=== PATIENT | female | born 1985 | race Caucasian/White ===

== ENCOUNTER 2017-11-19 14:36 | Inpatient (IN) | payer OTHER ==
[~2017-11-19] VITALS: Ht 170.2 cm; Wt 125.0 kg
--- NOTE | ~2017-11-19 | OR ---
[facility] [address] [place], [place] [address] Draft DATE OF OPERATION: 12/01/2017 SURGEON: Mary López MD PREOPERATIVE DIAGNOSES: 1. A 32-year-old, 6, para 2 at 39 weeks 2 days estimated gestational age. 2. Repeat section. 3. Asthma. 4. Depression/anxiety. 5. History of baby dying of sudden infant syndrome. 6. Group B strep positive. POSTOPERATIVE DIAGNOSES: 1. A 32-year-old, 6, para 2 at 39 weeks 2 days estimated gestational age. 2. Repeat section. 3. Asthma. 4. Depression/anxiety. 5. History of baby dying of sudden infant syndrome. 6. Group B strep positive. PROPERTY SITE MANAGER SURGEON: Luis Angel Blevins MD ANESTHESIA PROVIDER: Moise Lopez CRNA ANESTHESIA: Spinal anesthesia provided. ESTIMATED BLOOD LOSS: 600 mL. URINE OUTPUT: 100 mL with Perez draining to gravity. INTRAVENOUS FLUIDS IN: 2000 mL. PROCEDURE: Repeat low-transverse section with double-layer closure. PATIENT NAME: LUC GREENFIELD OPERATIVE REPORT DATE OF : 87 REPORT #: [id number] PHYSICIAN: MARY LÓPEZ MD PCP: MARY LÓPEZ MD REPORT IS CONFIDENTIAL AND NOT TO BE RELEASED WITHOUT AUTHORIZATION [address] [address] Draft PROCEDURE TECHNIQUE: The patient was taken back to the operating room with IV fluids hanging. She was placed on the operating table with in sitting upright position and her spinal anesthesia was then placed under sterile technique. She was then prepped and draped under normal sterile technique and a Perez catheter placed at that time. She was then checked for appropriate anesthesia and was found to be good and a Pfannenstiel skin incision was made with a scalpel through the subcutaneous tissue to the fascia, which was nicked in the midline. The incision was then extended laterally with Neff scissors and the fascia then grasped with Rajesh clamps on the anterior edge and tented upward and away from the rectus abdominis muscles. These were off both sharply and bluntly. The same was performed superiorly. There was significant scarring noted. The rectus abdominis muscles were then in the midline and the peritoneum identified. It was tented up with a mosquito clamp and entered sharply with Metzenbaum scissors. That incision was extended superiorly and inferiorly. The winch operator's hand was inserted to check for scarring and it was clear of omentum. An Chino retractor was then placed into the incision and tightened down against the anterior abdominal wall. The uterus was then easily visualized and the uterovesical fascia was grasped with a sharp pickup and entered with Metzenbaum scissors and a bladder flap was then created. It was pushed down away from the lower uterine segment, which was noted to be very thin. Lower uterine segment was then incised with scalpel and upon incising the lower uterine segment, the amniotic sac was ruptured simultaneously. The incision was extended digitally and the vertex baby girl was noted with loose nuchal cord x2, presenting in the LOP position. She was delivered easily and the cord was clamped and cut after it had been reduced. Cord blood was sent. Baby was passed off to waiting pediatric nurses. Baby's mouth and nose were suctioned. Good cry. She was noted to have Apgars of 8 at 1 minute and 9 at 5 minutes. Baby weighed 7 pounds 4 ounces. She was later taken over to mother and placed yraw-au-qedr while the procedure was continuing. Attention was then turned to the uterus, where the placenta was delivered manually and dry laparotomy sponges were used to clear out the uterine cavity, endometrium, and endometrial cavity. T- clamps were placed on the lateral apices and the lower uterine segment and 0 Monocryl was used to reapproximate the first layer in continuous running lock stitch. Second layer was used to imbricate the first in a baseball-type fashion with good hemostasis on both layers. A few extra gnhmas-iv-pjhezs were thrown for further hemostasis. The pelvis was then irrigated copiously with normal saline. Again, good hemostasis was noted. The Chino retractor was then removed and the peritoneum grasped with Arianna clamps x3. The incision was revisualized using Rich retractors x2 and then ACell graft was then placed over the incision to promote healing and prevent infection. The peritoneum was then reapproximated with 3-0 Vicryl in a continuous running fashion. Good hemostasis was noted and attention was then turned to the rectus abdominis muscles, which were reapproximated with 0 Vicryl interrupted x3 and then sprinkled with ACell powder again to promote healing and prevent infection. Attention PATIENT NAME: LUC GREENFIELD OPERATIVE REPORT DATE OF : [birth year] REPORT #: [id number] PHYSICIAN: MARY LÓPEZ MD PCP: MARY LÓPEZ MD REPORT IS CONFIDENTIAL AND NOT TO BE RELEASED WITHOUT AUTHORIZATION [address] [address] Draft was then turned to the fascia, which was reapproximated with 0 Vicryl in a continuous running fashion from the patient's right apex to the midline and then from the left apex to the midline with 2 separate 0 Vicryl sutures. Again, good hemostasis was noted. The subcutaneous layer was then irrigated and the Bovie was used for further hemostasis. A 2-0 Vicryl was then used to reapproximate that layer and the skin was then closed. Additionally, ACell powder was sprinkled in that layer to promote healing and prevent infection and the skin was reapproximated using avery. A pressure dressing was placed over the incision. The uterus was then expressed of all clot and debris. All sponge, instrument, and needle counts were correct. The patient was taken to recovery room in stable condition. There were no complications. Mary López MD JKM/MODL /[id number] Copies: ~ PATIENT NAME: LUC GREENFIELD OPERATIVE REPORT DATE OF : 87 REPORT #: [id number] PHYSICIAN: MARY LÓPEZ MD PCP: RENE,MARY K MD REPORT IS CONFIDENTIAL AND NOT TO BE RELEASED WITHOUT AUTHORIZATION
[~2017-11-19 14:36] MED LIST: FLUOXETINE HCL20 MG PO; IBUPROFEN800 MG PO; IPRAT-ALBUT 0.5-3 ML INH; OXYCODONE-ACET1 EAC1 PO; PREDNISONE20 MG PO; VENTOLIN HFA18 GM INH
--- NOTE | 2017-12-01 08:33 | NUR ---
12/01/17 0833 Gertrude Caba 0825 TO ROOM. S/O AT BEDSIDE. FBC RN AT BEDSIDE. PT DENIES PAIN OR NAUSEA AT THIS TIME 0828 BABY TO BREAST.
--- NOTE | 2017-12-02 07:24 | PR ---
[facility] [address] [facility] [place], [place] [address] Signed PP Progress Notes Datetime Report Generated by CPN: 12/02/2017 07:24 SUBJECTIVE: [id number] Pain: Within normal limits Nausea/Vomiting: Denies Flatus: Yes Vital Signs: [id number] Vital Signs: Reviewed; Within Normal Limits EXAM: [id number] Cardiovascular: Normal Respiratory: Normal Abdomen/Uterus: Normal Lochia: Normal Vulva/Perineum: Normal Breasts: Normal CVA Tenderness: Normal Extremities: Normal Incision: Normal Progress: Normal IMPRESSION/PLAN/PROCEDURES: [id number] Impression: Normal progression Plan: Continue present management Procedures: None Progress Notes: patient doing well postoperatively. Routine care Signing Physician: Mary Parker MD CC: *Electronically Signed* 12/02/17 0724 MARY PARKER MD PATIENT NAME: LUC GREENFIELD PROGRESS NOTE DATE OF : 87 PHYSICIAN: MARY PARKER MD RPT #: [id number] REPORT IS CONFIDENTIAL AND NOT TO BE RELEASED WITHOUT AUTHORIZATION
--- NOTE | 2017-12-03 09:49 | PR ---
[facility] [address] [facility] [place], [place] [address] Signed PP Progress Notes Datetime Report Generated by CPN: 12/03/2017 09:49 SUBJECTIVE: [id number] Pain: Within normal limits Nausea/Vomiting: Denies Flatus: Yes Vital Signs: [id number] Vital Signs: Reviewed; Within Normal Limits EXAM: [id number] Cardiovascular: Normal Respiratory: Normal Abdomen/Uterus: Normal Lochia: Normal Vulva/Perineum: Normal Breasts: Normal CVA Tenderness: Normal Extremities: Normal Incision: Normal Progress: Normal IMPRESSION/PLAN/PROCEDURES: [id number] Impression: Normal progression Plan: Remove avery; Discharge Procedures: None Progress Notes: patient doing well. OK for d/c home today Signing Physician: Mary Parker MD CC: *Electronically Signed* 12/03/17 0949 MARY PARKER MD PATIENT NAME: LUC GREENFIELD PROGRESS NOTE DATE OF : 87 PHYSICIAN: MARY PARKER MD RPT #: [id number] REPORT IS CONFIDENTIAL AND NOT TO BE RELEASED WITHOUT AUTHORIZATION
== END 2017-12-03 10:40 | disposition home or self-care (01) | DRG 766 ==
LOC: FBC 12-01 05:08 → MS 12-01 08:53 → FBC 12-03 10:40
PROVIDERS: ADMIT Obstetrics & Gynecology
PROC: 10D00Z1 Extraction of Products of Conception, Low, Open Approach (ICD-10-PCS; principal; 2017-12-01 06:45)
DX: O34.211 Maternal care for low transverse scar from previous cesarean delivery (principal); Z3A.39 39 weeks gestation of pregnancy; Z37.0 Single live birth; O99.824 Streptococcus B carrier state complicating childbirth; O99.344 Other mental disorders complicating childbirth; F41.8 Other specified anxiety disorders; J45.909 Unspecified asthma, uncomplicated; O99.52 Diseases of the respiratory system complicating childbirth
CPT/HCPCS: 01961; 36415; 85027; C1763; J0690; J1885; J2274; J2405; J2590; J2765; J3010; J7040; J7120

== ENCOUNTER 2017-12-11 17:15 | Emergency (ER) | payer OTHER ==
[~2017-12-11] VITALS: Ht 170.2 cm; Wt 115.2 kg
[2017-12-11] MEDS ORDERED: FENUGREEK500 MG PO (17:53)
[2017-12-11] MEDS ORDERED: PERCOCET 5-3251 EACH PO (17:53)
[2017-12-11] MEDS ORDERED: IBUPROFEN200 MG PO (17:53)
== END 2017-12-11 19:04 | disposition home or self-care (01) ==
LOC: ED 17:15
PROC: 0HQFXZZ Repair Right Hand Skin, External Approach (ICD-10-PCS; principal; 2017-12-11)
DX: S61.212A Laceration without foreign body of right middle finger without damage to nail, initial encounter (principal); J45.909 Unspecified asthma, uncomplicated; Z87.891 Personal history of nicotine dependence; Z79.899 Other long term (current) drug therapy; W25.XXXA Contact with sharp glass, initial encounter
CPT/HCPCS: 12001; 99282

== ENCOUNTER 2018-02-05 18:35 | Inpatient (IN) | payer OTHER ==
[~2018-02-05] VITALS: Ht 170.2 cm; Wt 117.7 kg
--- OUTSIDE RECORDS SUMMARY | ~2018-02-05 | XMS | Clinical Summary ---
Demographics + + + | Address | [address] | | | [place] [address] | + + + | Home Phone | | + + + | Preferred Language | Unknown | + + + | Marital Status | Single | + + + | Buddhist Affiliation | Unknown | + + + | Race | Unknown | + + + | Ethnic Group | Unknown | + + + Author + + + | Author | [facility] | + + + | Organization | [facility] | + + + | Address | Unknown | + + + | Phone | Unavailable | + + + Support + + +---------+ + | Name | Relationship | Address | Phone | + + +---------+ + | Johnathan,Detailed | ECON | Unknown | | + + +---------+ + | Arthur Vaca | ECON | Unknown | | + + +---------+ + Care Team Providers + +------+ + | Care Wire Coater Name | Role | Phone | + +------+ + | Halima Morales TEACHER'S AIDE | PP | | + +------+ + Allergies No Known Allergies Current Medications No known medications Active Problems + + + | Problem | Noted Date | + + + | Fever | 02/29/2016 | + + + | Cauda equina compression | 02/25/2016 | + + + | Midline low back pain | 02/25/2016 | + + + Family History + + +------+ + | Medical History | Relation | Name | Comments | + + +------+ + | Cancer | Mother | | | + + +------+ + + +------+--------+ + | Relation | Name | Status | Comments | + +------+--------+ + | Mother | | | | + +------+--------+ + Social History + +-------+ +--------+------+ | Tobacco Use | Types | Packs/Day | Years | Date | | | | | Used | | + +-------+ +--------+------+ | Never Smoker | | | | | + +-------+ +--------+------+ + + +---------+ + | Alcohol Use | Drinks/We | oz/Week | Comments | | | ek | | | + + +---------+ + | No | | | | + + +---------+ + + + + | Sex Assigned at | Date Recorded | | | | + + + | Not on file | | + + + Last Filed Vital Signs + + + + | Vital Sign | Reading | Time Taken | + + + + | Blood Pressure | 98/55 | 02/29/2016 3:14 PM PDT | + + + + | Pulse | 101 | 02/29/2016 3:14 PM PDT | + + + + | Temperature | 38 C (100.4 F) | 02/29/2016 3:14 PM PDT | + + + + | Respiratory Rate | 16 | 02/29/2016 3:14 PM PDT | + + + + | Oxygen Saturation | 97% | 02/29/2016 3:14 PM PDT | + + + + | Inhaled Oxygen | - | - | | Concentration | | | + + + + | Weight | 117.9 kg (260 lb) | 03/29/2016 1:14 PM PDT | + + + + | Height | 170.2 cm (5' 7") | 03/29/2016 1:14 PM PDT | + + + + | Body Mass Index | 40.72 | 03/29/2016 1:14 PM PDT | + + + + Plan of Treatment + + + + + | Health Maintenance | Due Date | Last Done | Comments | + + + + + | Vaccine: | | | | | Dtap/Tdap/Td (1 - | 6 | | | | Tdap) | | | | + + + + + | Cervical Cancer | | | | | Screening (Pap) | 8 | | | + + + + + | Vaccine: Influenza | | | | | (#1) | 7 | | | + + + + + Implants + +------+--------+ +--------+--------+--------+ | Implanted | Type | Area | Manufacture | Device | Expira | Model | | | | | r | | tion | / | | | | | | Identi | Date | Serial | | | | | | fier | | / Lot | + +------+--------+ +--------+--------+--------+ | Duragen Dura GraftImplanted: | | Spine | INTEGRA | | 11/03/ | [id number] | | Qty: 1 on 02/25/2016 by | | Lumbar | | | 2016 | /[id number] | | Hitesh Ulrich MD | | | | | | | | | | | | | | /[id number] | | | | | | | | 51 | + +------+--------+ +--------+--------+--------+ Results Not on filefrom Last 3 Months Insurance + +--------+ +------+-------+ + | Payer | Benefi | Subscriber | Type | Phone | Address | | | t Plan | ID | | | | | | / | | | | | | | Group | | | | | + +--------+ +------+-------+ + | MEDICAID | [place] | xxxxxxxx | | | [address] | | | [place] | | | | [place] | | | [place] | | | | [phone] | | | DIRECTOR INSTRUMENTATION | | | | | + +--------+ +------+-------+ + + +--------+ +--------+ + + | Guarantor Name | Accoun | Relation to | Date | Phone | Billing Address | | | t Type | Patient | of | | | | | | | | | | + +--------+ +--------+ + + | LUC PERDUE | Person | Self [birth year] Home: | [address] | | | al/Fam | | 1985 | [phone] | [place] [address] | | | henna | | | [phone] | | + +--------+ +--------+ + +
--- OUTSIDE RECORDS SUMMARY | ~2018-02-05 | XMS | Clinical Summary ---
Demographics + + + | Address | [address] | | | [place] [address] | + + + | Home Phone | | + + + | Preferred Language | Unknown | + + + | Marital Status | | + + + | Denominational Affiliation | Unknown | + + + | Race | Unknown | + + + | Ethnic Group | Unknown | + + + Author + + + | Author | [facility] | | | and [place] | + + + | Organization | [facility] | | | and [place] | + + + | Address | Unknown | + + + | Phone | Unavailable | + + + Support + + +---------+ + | Name | Relationship | Address | Phone | + + +---------+ + | Listed,None | ECON | Unknown | | + + +---------+ + Care Team Providers + +------+ + | Care Matte Cutter Name | Role | Phone | + +------+ + | Halima MoralesP | PP | Unavailable | + +------+ + Allergies No Known Allergies Current Medications + + +-------+---------+------+------+-------+ | Prescription | Sig. | Disp. | Refills | Star | End | Statu | | | | | | t | Date | s | | | | | | Date | | | + + +-------+---------+------+------+-------+ | | Take 1 tablet by | | | | | Activ | | oxyCODONE-acetaminop | mouth every 6 hours | | | | | e | | hen (PERCOCET) 5-325 | as needed for Pain. | | | | | | | mg per tablet | | | | | | | + + +-------+---------+------+------+-------+ | ibuprofen | Take 800 mg by mouth | | | | | Activ | | (ADVIL,MOTRIN) 800 | every 6 hours as | | | | | e | | MG tablet | needed for Pain. | | | | | | + + +-------+---------+------+------+-------+ | gabapentin | Take 300 mg by mouth | | | | | Activ | | (NEURONTIN) 300 mg | 3 times daily. | | | | | e | | capsule | | | | | | | + + +-------+---------+------+------+-------+ Active Problems No known active problems Family History + + +------+ + | Medical History | Relation | Name | Comments | + + +------+ + | SIDS | Child | | 8 months | + + +------+ + | Diabetes | Maternal | | | | | Grandmoth | | | | | er | | | + + +------+ + | Gout | Maternal | | | | | Grandmoth | | | | | er | | | + + +------+ + | Cancer | Mother | | | + + +------+ + | Substance abuse | Mother | | | + + +------+ + | Diabetes | Other | | grandmother | + + +------+ + + +------+--------+ + | Relation | Name | Status | Comments | + +------+--------+ + | Child | | | | + +------+--------+ + | Maternal Grandmother | | | | + +------+--------+ + | Mother | | | | + +------+--------+ + | Other | | | | + +------+--------+ + Social History + +-------+ +--------+------+ | Tobacco Use | Types | Packs/Day | Years | Date | | | | | Used | | + +-------+ +--------+------+ | Former Smoker | | | | | + +-------+ +--------+------+ + + + | Sex Assigned at | Date Recorded | | | | + + + | Not on file | | + + + Last Filed Vital Signs + + + + | Vital Sign | Reading | Time Taken | + + + + | Blood Pressure | 136/75 | 03/12/20161046 PDT | + + + + | Pulse | 91 | 03/12/20161046 PDT | + + + + | Temperature | - | - | + + + + | Respiratory Rate | 18 | 03/12/20161046 PDT | + + + + | Oxygen Saturation | - | - | + + + + | Inhaled Oxygen | - | - | | Concentration | | | + + + + | Weight | 113.4 kg (250 lb) | 03/12/20161046 PDT | + + + + | Height | 172.7 cm (5' 8") | 03/12/20161046 PDT | + + + + | Body Mass Index | 38.01 | 03/12/20161046 PDT | + + + + Plan of Treatment + + + + + | Health Maintenance | Due Date | Last Done | Comments | + + + + + | Vaccine: | 02/03/200 | | | | Dtap/Tdap/Td (1 - | 6 | | | | Tdap) | | | | + + + + + | CERVICAL CANCER | | | | | SCREENING (PAP EVERY | 8 | | | | 3 YEARS 21-64 ) | | | | + + + + + | Vaccine: Influenza | | | | | (#1) | 7 | | | + + + + + Results Not on filefrom Last 3 Months Insurance + +--------+ +--------+ +---------+ | Payer | Benefi | Subscriber | Type | Phone | Address | | | t Plan | ID | | | | | | / | | | | | | | Group | | | | | + +--------+ +--------+ +---------+ | [employer] | MOD[employer] | xxxxxxxx | Medica | [phone] | | | MEDICAID O | HEALTH | | id | 9821 | | | | [place] | | | | | | | [place] | | | | | + +--------+ +--------+ +---------+ + +--------+ +--------+ + + | Guarantor Name | Accoun | Relation to | Date | Phone | Billing Address | | | t Type | Patient | of | | | | | | | | | | + +--------+ +--------+ + + | LUC PERDUE | Person | Self | [birth year] Home: | [address] | | | al/Fam | | 1985 | [phone] | [place] [address] | | | [place] | | | [phone] | | + +--------+ +--------+ + +
--- OUTSIDE RECORDS SUMMARY | ~2018-02-05 | XMS | Clinical Summary ---
Demographics + + + | Address | [address] | | | [place] [address] | + + + | Home Phone | | + + + | Preferred Language | Unknown | + + + | Marital Status | Single | + + + | Scientology Affiliation | Unknown | + + + | Race | Unknown | + + + | Ethnic Group | Unknown | + + + Author + + + | Author | [facility] | + + + | Organization | [facility] | + + + | Address [...] Team Providers + +------+ + | Care Lever Tender Name | Role | Phone | + +------+ + | Halima Morales THERMOSTAT MECHANIC | PP | | + +------+ + [...] | | | | | | | /[phone] | | | | | | | [...] | | [place] | | | | [phone] | | | BOILER/CHILLER OPERATOR | | | | | + +--------+ [...] Self | [birth year] | Home: | [address] | | | al/Fam | | 1985 | [phone] | [place] [address] | | | henna | | | [phone] | | + +--------+ +--------+ + +
--- OUTSIDE RECORDS SUMMARY | ~2018-02-05 | XMS | Clinical Summary ---
Demographics + + + | Address | [address] | | | [place] [address] | + + + | Home Phone | | + + + | Preferred Language | Unknown | + + + | Marital Status | | + + + | Jehovah'S Witness Affiliation | Unknown | + + + | Race | Unknown | + + + | Ethnic Group | Unknown | + + + Author + + + | Author | [facility] | | | and [place] | + + + | Organization | [facility] | | | and [place] | [...] Team Providers + +------+ + | Care Substation Operator Transforming Name | Role | Phone | + [...] | [employer] | xxxxxxxx | Medica | [phone] | | | MEDICAID O | HEALTH [...] Self | [birth year] | Home: | [address] | | | al/Fam | | 1985 | [phone] | [place] [address] | | | hen[place] | | | [phone] | | + +--------+ +--------+ + +
--- OUTSIDE RECORDS SUMMARY | ~2018-02-05 | XMS | Clinical Summary ---
Demographics + + + | Address | [address] | | | [place] [address] | + + + | Home Phone | | + + + | Preferred Language | Unknown | + + + | Marital Status | Single | + + + | Church Affiliation | Unknown | + + + | Race | Unknown | + + + | Ethnic Group | Unknown | + + + Author + + + | Author | [facility] | + + + | Organization | [facility] | + + + | Address [...] Team Providers + +------+ + | Care Department Head College Or University Name | Role | Phone | + +------+ + | Halima Morales TEACHER AIDE CLERICAL | PP | | + +------+ + [...] | | | | | | | /[phone] | | | | | | | [...] | | [place] | | | | [phone] | | | BEVEL FACE STONER AND POLISHER | | | | | + +--------+ [...] Self | [birth year] | Home: | [address] | | | al/Fam | | 1985 | [phone] | [place] [address] | | | hen[place] | | | [address] | | + +--------+ +--------+ + +
--- OUTSIDE RECORDS SUMMARY | ~2018-02-05 | XMS | Clinical Summary ---
Demographics + + + | Address | [address] | | | [place] [address] | + + + | Home Phone | | + + + | Preferred Language | Unknown | + + + | Marital Status | | + + + | Nondenominational Affiliation | Unknown | + + + | Race | Unknown | + + + | Ethnic Group | Unknown | + + + Author + + + | Author | [facility] | | | and [place] | + + + | Organization | [facility] | | | and [place] [...] Team Providers + +------+ + | Care Occupancy Specialist Name | Role | Phone | + [...] | [employer] | xxxxxxxx | Medica | [phone] | | | MEDICAID O | HEALTH [...] Self | [birth year] | Home: | [address] | | | al/Fam | | 1985 | [phone] | [place] [address] | | | [place] | | | [address] | | + +--------+ +--------+ + +
[~2018-02-05 18:35] MED LIST changes: +FENUGREEK500 MG PO; +IBUPROFEN200 MG PO; +PERCOCET 5-3251 EACH PO
[2018-02-06] MEDS ORDERED: STRESS FORMULA1 EACH PO (09:35)
[2018-02-06] MEDS ORDERED: HYDROXYZINE HCL50 MG PO (09:37)
[2018-02-06] MEDS ORDERED: GARLIC500 M1 PO (09:41)
[2018-02-06] MEDS ORDERED: MULTI VITAMIN1 EACH PO (09:41)
[2018-02-06] MEDS ORDERED: IPRAT-ALBUT 0.5-3 ML INH (09:43)
[2018-02-06] MEDS ORDERED: FLOVENT HFA12 GM INH (09:56)
[2018-02-06] MEDS ORDERED: CEFPODOXIME PR200 MG PO (21:11)
[2018-02-06] MEDS ORDERED: PREDNISONE20 MG PO (21:12)
--- NOTE | 2018-03-05 11:18 | OR ---
[facility] [address] [place], [place] [address] Signed DATE OF OPERATION: 12/01/2017 SURGEON: Mary López MD PREOPERATIVE DIAGNOSES: 1. A 32-year-old, 6, para 2 at 39 weeks 2 days estimated gestational age. 2. Repeat section. 3. Asthma. 4. Depression/anxiety. 5. History of baby dying of sudden infant syndrome. 6. Group B strep positive. POSTOPERATIVE DIAGNOSES: 1. A 32-year-old, 6, para 2 at 39 weeks 2 days estimated gestational age. 2. Repeat section. 3. Asthma. 4. Depression/anxiety. 5. History of baby dying of sudden infant syndrome. 6. Group B strep positive. 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 ESTIMATED BLOOD LOSS: 600 mL. URINE OUTPUT: 100 mL with Perez draining to gravity. INTRAVENOUS FLUIDS IN: 2000 mL. PROCEDURE: Repeat low-transverse section with double-layer closure. Electronically Signed By: MARY LÓPEZ MD 02/16/18 1653 PATIENT NAME: LUC GREENFIELD OPERATIVE REPORT DATE OF : 87 REPORT #: [id number] PHYSICIAN: MARY LÓPEZ MD PCP: NATHALIE MATA REPORT IS CONFIDENTIAL AND NOT TO BE RELEASED WITHOUT AUTHORIZATION [facility] [address] [place], [place] [address] Signed PROCEDURE TECHNIQUE: The patient was taken back to the operating room with IV fluids hanging. She was placed on the operating table with in sitting upright position and her spinal anesthesia was then placed under sterile technique. She was then prepped and draped under normal sterile technique and a Perez catheter placed at that time. She was then checked for appropriate anesthesia and was found to be good and a Pfannenstiel skin incision was made with a scalpel through the subcutaneous tissue to the fascia, which was nicked in the midline. The incision was then extended laterally with Neff scissors and the fascia then grasped with Rajesh clamps on the anterior edge and tented upward and away from the rectus abdominis muscles. These were off both sharply and bluntly. The same was performed superiorly. There was significant scarring noted. The rectus abdominis muscles were then in the midline and the peritoneum identified. It was tented up with a mosquito clamp and entered sharply with Metzenbaum scissors. That incision was extended superiorly and inferiorly. The high reach operator's hand was inserted to check for scarring and it was clear of omentum. An Chino retractor was then placed into the incision and tightened down against the anterior abdominal wall. The uterus was then easily visualized and the uterovesical fascia was grasped with a sharp pickup and entered with Metzenbaum scissors and a bladder flap was then created. It was pushed down away from the lower uterine segment, which was noted to be very thin. Lower uterine segment was then incised with scalpel and upon incising the lower uterine segment, the amniotic sac was ruptured simultaneously. The incision was extended digitally and the vertex baby girl was noted with loose nuchal cord x2, presenting in the LOP position. She was delivered easily and the cord was clamped and cut after it had been reduced. Cord blood was sent. Baby was passed off to waiting pediatric nurses. Baby's mouth and nose were suctioned. Good cry. She was noted to have Apgars of 8 at 1 minute and 9 at 5 minutes. Baby weighed 7 pounds 4 ounces. She was later taken over to mother and placed [id number] while the procedure was continuing. Attention was then turned to the uterus, where the placenta was delivered manually and dry laparotomy sponges were used to clear out the uterine cavity, endometrium, and endometrial cavity. T- clamps were placed on the lateral apices and the lower uterine segment and 0 Monocryl was used to reapproximate the first layer in continuous running lock stitch. Second layer was used to imbricate the first in a baseball-type fashion with good hemostasis on both layers. A few extra [id number] were thrown for further hemostasis. The pelvis was then irrigated copiously with normal saline. Again, good hemostasis was noted. The Chino retractor was then removed and the peritoneum grasped with Arianna clamps x3. The incision was revisualized using Rich retractors x2 and then ACell graft was then placed over the incision to promote healing and prevent infection. The peritoneum was then reapproximated with 3-0 Vicryl in a continuous running fashion. Good hemostasis was noted and attention was then turned to the rectus abdominis muscles, which were reapproximated with 0 Vicryl interrupted x3 and then sprinkled with ACell powder again to promote healing and prevent infection. Attention Electronically Signed By: MARY LÓPEZ MD 02/16/18 1653 PATIENT NAME: LUC GREENFIELD OPERATIVE REPORT DATE OF : 87 REPORT #: [id number] PHYSICIAN: MARY LÓPEZ MD PCP: NATHALIE MATA REPORT IS CONFIDENTIAL AND NOT TO BE RELEASED WITHOUT AUTHORIZATION [facility] [address] [place] [address] Signed was then turned to the fascia, which was reapproximated with 0 Vicryl in a continuous running fashion from the patient's right apex to the midline and then from the left apex to the midline with 2 separate 0 Vicryl sutures. Again, good hemostasis was noted. The subcutaneous layer was then irrigated and the Bovie was used for further hemostasis. A 2-0 Vicryl was then used to reapproximate that layer and the skin was then closed. Additionally, ACell powder was sprinkled in that layer to promote healing and prevent infection and the skin was reapproximated using avery. A pressure dressing was placed over the incision. The uterus was then expressed of all clot and debris. All sponge, instrument, and needle counts were correct. The patient was taken to recovery room in stable condition. There were no complications. Mary López MD JKM/MODL /[id number] Copies: ~ Electronically Signed By: MARY LÓPEZ MD 02/16/18 1653 PATIENT NAME: LUC GREENFIELD OPERATIVE REPORT DATE OF : 87 REPORT #: [id number] PHYSICIAN: MARY LÓPEZ MD PCP: NATHALIE MATA REPORT IS CONFIDENTIAL AND NOT TO BE RELEASED WITHOUT AUTHORIZATION
== END 2018-02-09 10:15 | disposition home or self-care (01) | DRG 193 ==
LOC: ED 18:35 → MS 20:49
PROVIDERS: ADMIT Internal Medicine
DX: J13 Pneumonia due to Streptococcus pneumoniae (principal); J96.01 Acute respiratory failure with hypoxia; J45.31 Mild persistent asthma with (acute) exacerbation; F32.9 Major depressive disorder, single episode, unspecified; F41.9 Anxiety disorder, unspecified
CPT/HCPCS: 36415; 71046; 80048; 80053; 83880; 85025; 94640; 94667; 94668; 94762; 96374; 96375; 99285; J0456; J0696; J2930; J7030; J7050; J7120; J7512

== ENCOUNTER 2019-04-30 14:56 | Emergency (ER) | payer OTHER ==
[~2019-04-30] VITALS: Ht 170.2 cm; Wt 117.7 kg
[~2019-04-30 14:56] MED LIST changes: +CEFPODOXIME PR200 MG PO; +FLOVENT HFA12 GM INH; +GARLIC500 M1 PO; +HYDROXYZINE HCL50 MG PO; +MULTI VITAMIN1 EACH PO; +STRESS FORMULA1 EACH PO
[2019-04-30] MEDS ORDERED: ALBUTEROL2.5 MG/3 M INH (16:40)
[2019-04-30] MEDS ORDERED: FLOVENT DISKU250 MCG INH (16:40)
[2019-04-30] MEDS ORDERED: PROVENTIL HFA6.7 GM INH (16:40)
[2019-04-30] MEDS ORDERED: PREDNISONE20 MG PO (16:40)
[2019-04-30] MEDS ORDERED: IPRATROPIU0.2 MG/1 M INH (16:40)
== END 2019-04-30 16:46 | disposition home or self-care (01) ==
LOC: ED 14:56
DX: J45.901 Unspecified asthma with (acute) exacerbation (principal); Z90.49 Acquired absence of other specified parts of digestive tract; Z79.899 Other long term (current) drug therapy
CPT/HCPCS: 94644; 94645; 99284; J7512

== ENCOUNTER 2022-03-08 08:08 | Emergency (ER) | payer OTHER ==
[~2022-03-08] VITALS: Ht 170.2 cm; Wt 117.7 kg
[~2022-03-08 08:08] MED LIST changes: +ALBUTEROL2.5 MG/3 M INH; +FLOVENT DISKU250 MCG INH; +IPRATROPIU0.2 MG/1 M INH; +PROVENTIL HFA6.7 GM INH
[2022-03-08] MEDS ORDERED: ONDANSETRON ODT4 MG PO (14:50)
== END 2022-03-08 14:45 | disposition home or self-care (01) ==
LOC: ED 08:08
DX: R11.2 Nausea with vomiting, unspecified (principal); R19.7 Diarrhea, unspecified; J45.909 Unspecified asthma, uncomplicated; Z79.899 Other long term (current) drug therapy; Z79.52 Long term (current) use of systemic steroids; Z20.822 Contact with and (suspected) exposure to COVID-19
CPT/HCPCS: 36415; 74177; 80053; 81001; 84703; 85025; 87502; 96375; 96376; 99284-25; J1790; J1885; J2405; J7030; Q9967; U0003

== ENCOUNTER 2025-05-03 07:53 | Emergency (ER) | payer OTHER ==
[~2025-05-03] VITALS: Ht 170.2 cm; Wt 99.1 kg
[~2025-05-03 07:53] MED LIST changes: +ONDANSETRON ODT4 MG PO
[2025-05-03] MEDS ORDERED: SODIUM CHLORIDE 0.9% 1,000 ML IV ONE (08:15)
[2025-05-03] MEDS ORDERED: HALOPERIDOL LACTATE 5 MG/ML VIAL IV ONE (08:15)
[2025-05-03 08:54] LABS: ALT (SGPT) 26.0 U/L (14-59); AST (SGOT) 22.0 U/L (15-37); GLOMERULAR FILTRATION RATE,EST 80.0 mL/min (>60); PROTEIN, TOTAL 7.8 g/dL (6.4-8.2); UREA NITROGEN 13.0 mg/dL (7-18)
[2025-05-03] MEDS ORDERED: ONDANSETRON ODT8 MG PO (08:54)
[2025-05-03] MEDS ORDERED: POTASSIUM CHLORIDE 10 MEQ TABCR PO ONE (09:00)
[2025-05-03 09:15] VITALS: BP 128/74
== END 2025-05-03 09:16 | disposition home or self-care (01) ==
LOC: ED 07:53
PROVIDERS: Emergency Medicine
DX: R11.15 Cyclical vomiting syndrome unrelated to migraine (principal); E87.6 Hypokalemia; F12.90 Cannabis use, unspecified, uncomplicated; J45.909 Unspecified asthma, uncomplicated; M41.9 Scoliosis, unspecified; Z79.51 Long term (current) use of inhaled steroids; Z79.899 Other long term (current) drug therapy
CPT/HCPCS: 36415; 80053; 96374; 96375; 99284-25; A9270; J1200; J1630; J2405; J7030